=== PATIENT | male | born 1970 | race Caucasian/White ===

== ENCOUNTER → 2024-09-19 13:20 | Outpatient (BNVA) | payer MEDICARE, SELFPAY | PROVIDERS: PCP Family Medicine; Visit Provider Family Medicine | DX: E11.9 Type 2 diabetes mellitus without complications (principal); R35.1 Nocturia | CPT/HCPCS: 80053; 80061; 82043; 83036; 84153; 85025 ==

== ENCOUNTER → 2024-11-20 08:11 | Outpatient (BNVA) | payer MEDICARE, SELFPAY | PROVIDERS: PCP Family Medicine; Referring Provider Family Medicine; Visit Provider Internal Medicine | DX: J45.50 Severe persistent asthma, uncomplicated (principal); J96.10 Chronic respiratory failure, unspecified whether with hypoxia or hypercapnia; E66.9 Obesity, unspecified; Z68.37 Body mass index [BMI] 37.0-37.9, adult; Z99.81 Dependence on supplemental oxygen; Z99.89 Dependence on other enabling machines and devices; J44.9 Chronic obstructive pulmonary disease, unspecified | CPT/HCPCS: 99205 ==

== ENCOUNTER → 2025-02-12 09:20 | Outpatient (BNVA) | payer MEDICARE, MEDICAID, SELFPAY | PROVIDERS: PCP Family Medicine; Visit Provider Family Medicine | DX: E11.9 Type 2 diabetes mellitus without complications (principal) | CPT/HCPCS: 80053; 83036 ==

== ENCOUNTER 2025-02-21 08:53 | Outpatient (CLI) | payer MEDICARE, MEDICAID, SELFPAY ==
--- NOTE | 2025-02-21 09:00 | XRR_ITS ---
PROCEDURE INFORMATION: Exam: XR Chest Exam date and time: 02/21/2025 9:05 AM Age: 54 years old Clinical indication: Condition or disease; Lung condition and disease; Other: Bronchitis TECHNIQUE: Imaging protocol: Radiologic exam of the chest. Views: 2 views. COMPARISON: No relevant prior studies available. FINDINGS: Lungs: Abnormal hilar prominence, right slightly greater than left. This may represent prominent pulmonary arteries. Lymphadenopathy and/or mass could also have this appearance. Chest CT could better evaluate. Pleural spaces: Unremarkable. No pleural effusion. No pneumothorax. Heart/Mediastinum: See Lungs finding. Bones/joints: Unremarkable. XR/XR chest 2V* [id number] IMPRESSION: Abnormal hilar prominence, right slightly greater than left. This may represent prominent pulmonary arteries. Lymphadenopathy and/or mass could also have this appearance. Chest CT could better evaluate.
== END 2025-02-21 08:54 | disposition home or self-care (01) ==
PROVIDERS: PCP Family Medicine; Visit Provider Internal Medicine
DX: J44.9 Chronic obstructive pulmonary disease, unspecified (principal); R94.8 Abnormal results of function studies of other organs and systems
CPT/HCPCS: 71046

== ENCOUNTER 2025-02-21 12:38 | Outpatient (CLI) | payer MEDICARE, MEDICAID, SELFPAY ==
[2025-02-21 13:07] VITALS: PULSE 106; RESP 20; O2SAT 90
== END 2025-02-21 12:39 | disposition home or self-care (01) ==
LOC: RT 12:44
PROVIDERS: PCP Family Medicine; Visit Provider Internal Medicine
DX: J44.9 Chronic obstructive pulmonary disease, unspecified (principal); J98.8 Other specified respiratory disorders
CPT/HCPCS: J7613